=== PATIENT | female | born 1955 | race African-American/Black ===

== ENCOUNTER 2018-07-21 10:25 | Emergency (ER) | payer SELFPAY ==
--- NOTE | 2018-07-21 11:59 | CT ---
Exam: CT cervical spine without contrast HISTORY: Trauma. Pain. COMPARISON: None FINDINGS: No craniocervical dissociation. Appropriate alignment of the lateral masses of C1 and C2. Intact odon toid process Appropriate alignment of the facets. Soft tissue neck structures: No mass, lymphadenopathy or hematoma. No prevertebral soft tissue swelli ng. Upper mediastinum and lung apices: Unremarkable Central spinal canal: Varying degrees of central canal stenosis and neural foraminal narrowing on the basis of degenerative change. Moderate degenerative disc disease at C5-C6 with loss of disc space height, endplate sclerosis and osteophyte formation. Evaluation is limited by technique Vertebral bodies: Cervical spine vertebral body height is maintained. No fracture. IMPRESSION: 1. No cervical spine fracture 2. Varying degrees of central canal stenosis and foraminal narrowing on the basis of degenerative ch cordelia. Limited evaluation due to technique.
--- NOTE | 2018-07-21 12:03 | CT ---
BRAIN CT WITHOUT IV CONTRAST: Date: 07/21/18 HISTORY: Injury from fall, hit back of head. FINDINGS: No focal mass or midline shift. No intra or extra-axial hemorrhage. Sinuses and mastoids are clear of acute process. No evidence for acute skull fracture. IMPRESSION: No significant acute intracranial process. No mass or bleed. POS: TPC
--- NOTE | 2018-07-21 13:25 | RAD ---
LEFT ELBOW 4 VIEWS: Date: 07/21/18 HISTORY: Injury following a mechanical fall. FINDINGS/IMPRESSION: No fracture, dislocation, or other significant acute osseous process. POS: TPC
== END 2018-07-21 12:57 | disposition home or self-care (01) ==
LOC: ERS 10:25
DX: S09.90XA Unspecified injury of head, initial encounter (principal); M25.522 Pain in left elbow; M54.2 Cervicalgia; K21.9 Gastro-esophageal reflux disease without esophagitis; I25.2 Old myocardial infarction; F41.9 Anxiety disorder, unspecified; F32.9 Major depressive disorder, single episode, unspecified; F17.210 Nicotine dependence, cigarettes, uncomplicated; Z71.6 Tobacco abuse counseling; Z79.899 Other long term (current) drug therapy; Z79.82 Long term (current) use of aspirin; W01.0XXA Fall on same level from slipping, tripping and stumbling without subsequent striking against object, initial encounter
CPT/HCPCS: 70450; 72126; 99406

== ENCOUNTER 2018-08-23 19:52 | Emergency (ER) | payer OTHER, SELFPAY ==
--- NOTE | 2018-08-23 20:56 | RAD ---
3 views right shoulder. HISTORY: Right shoulder pain. AP internally, externally scapular Y views right shoulder obtained. No evidence of acute right shoulder fractures, subluxations or bony lesions seen. IMPRESSION: chronic right AC joint degenerative changes with no evidence of acute right shoulder abno rmalities seen.
[2018-08-23 21:08] LABS: #Basophils 0.1 thou/uL (0.0-0.2); #Eosinphils 0.1 thou/uL (0.0-0.7); #Lymphocytes 3.7 thou/uL (1.20-3.40); #Monocytes 0.5 thou/uL (0.11-0.59); %Basophils 0.6 % (0.0-1.0); %Eosinophils 1.4 % (0.0-10.0); %Lymphocytes 39.2 % (21.0-51.0); %Monocytes 5.2 % (0.0-10.0); %Neutrophils 53.6 % (42.0-75.0); Hemoglobin 14.1 g/dL (12.0-16.0); Mean Corpuscular HGB CONC 36.2 g/dL (32.0-36.0); Mean Corpuscular Hemoglobin 33.7 pg (27.0-31.0); Mean Corpuscular Volume 93.2 fL (78.0-98.0); Mean Platelet Volume 7.6 fL (7.4-10.4); Platelet Count 223 thou/uL (130-400); RBC Distribution Width 11.8 % (11.5-14.5); Red Blood Cell (RBC) Count 4.19 mill/uL (4.20-5.40); White Blood Cell (WBC) Count 9.4 thou/uL (4.8-10.8)
[2018-08-23 21:27] LABS: ALT (SGPT) 10 U/L (8-55); AST (SGOT) 13 U/L (5-34); Alkaline Phosphatase 73 U/L (40-150); Anion Gap 14 mmol/L (10-20); BUN (Urea Nitrogen) 7 mg/dL (9.8-20.1); Bilirubin, Total 0.3 mg/dL (0.2-1.2); Calc. Creatinine Clearance 0 mL/min (70-130); Calcium 9.5 mg/dL (7.8-10.44); Carbon Dioxide 24 mmol/L (23-31); Chloride 104 mmol/L (98-107); Estimated GFR-MDRD 87; Globulin 3.6 g/dL (2.4-3.5); Glucose 78 mg/dL (80-115); Lipase 57 U/L (8-78); Potassium 3.7 mmol/L (3.5-5.1); Protein, Total 7.6 g/dL (6.0-8.3); Sodium 138 mmol/L (136-145)
[2018-08-23] MEDS ORDERED: Ketorolac Tromethamine 60 MG/2 ML VIAL ONE (21:31)
== END 2018-08-23 22:15 | disposition home or self-care (01) ==
LOC: ERS 19:52
DX: M19.011 Primary osteoarthritis, right shoulder (principal); D57.3 Sickle-cell trait; K21.9 Gastro-esophageal reflux disease without esophagitis; I25.2 Old myocardial infarction; F41.9 Anxiety disorder, unspecified; F32.9 Major depressive disorder, single episode, unspecified; F17.210 Nicotine dependence, cigarettes, uncomplicated; Z79.82 Long term (current) use of aspirin; Z79.899 Other long term (current) drug therapy
CPT/HCPCS: 36415; 80053; 83690; 85025; 93005; 96372; J1885

== ENCOUNTER 2019-09-15 15:02 | Inpatient (IN) | payer BC, OTHER ==
[2019-09-15] MEDS ORDERED: Labetalol HCl 100 MG/20 ML VIAL ONE (15:36)
--- NOTE | 2019-09-15 15:36 | RAD ---
EXAM: Single view of the chest HISTORY: Chest pain COMPARISON: 07/24/2014 FINDINGS: Single view of the chest shows a normal sized cardiomediastinal silhouette. There is no zeny dence of consolidation, mass, or pleural effusion. The bones are unremarkable. IMPRESSION: No evidence of acute cardiopulmonary disease
[2019-09-15 15:48] LABS: Bilirubin Negative (Negative); Blood, Urine Negative (Negative); Clarity Clear (Clear); Glucose, Urine (Dipstick) Normal (Negative); Leukocyte Negative Leu/uL (Negative); Nitrite Negative (Negative); Protein, Urine (Dipstick) Negative (Neg-Trace); Urobilinogen Normal mg/dL (Less than 2)
[2019-09-15 15:56] LABS: Hemoglobin 15.1 g/dL (12.0-16.0); Mean Corpuscular HGB CONC 33.3 g/dL (32.0-36.0); Mean Corpuscular Hemoglobin 31.7 pg (27.0-31.0); Mean Corpuscular Volume 95.1 fL (78.0-98.0); Mean Platelet Volume 7.5 fL (7.4-10.4); Platelet Count 301 thou/uL (130-400); RBC Distribution Width 12.2 % (11.5-14.5); Red Blood Cell (RBC) Count 4.77 mill/uL (4.20-5.40); White Blood Cell (WBC) Count 11.2 thou/uL (4.8-10.8)
[2019-09-15 16:02] LABS: ALT (SGPT) 17 U/L (8-55); AST (SGOT) 16 U/L (5-34); Albumin 4.1 g/dL (3.4-4.8); Alkaline Phosphatase 74 U/L (40-110); Anion Gap 13 mmol/L (10-20); BUN (Urea Nitrogen) 6 mg/dL (9.8-20.1); Bilirubin, Total 0.4 mg/dL (0.2-1.2); Calc. Creatinine Clearance 0 mL/min (70-130); Calcium 9.6 mg/dL (7.8-10.44); Carbon Dioxide 22 mmol/L (23-31); Chloride 107 mmol/L (98-107); Estimated GFR-MDRD 83; Globulin 3.5 g/dL (2.4-3.5); Glucose 139 mg/dL (80-115); Lipase 42 U/L (8-78); Protein, Total 7.6 g/dL (6.0-8.3); Sodium 138 mmol/L (136-145)
[2019-09-15 16:07] LABS: Eosinophils 1 % (0-10); Lymphocytes 42 % (21-51); MDiff Complete? YES; Monocytes 2 % (0-10); Neutrophil 54 % (42-75); RBC Morphology Normal; Reactive Lymphocytes 1 % (0-10)
[2019-09-15] MEDS ORDERED: Aspirin Chewable 81 MG TAB ONE (16:40)
[2019-09-15 19:42] LABS: Troponin I Less than 0.010 ng/mL (< 0.028)
[2019-09-15] MEDS ORDERED: Nitroglycerin 0.4 MG TAB (25 Tab Bottle) PO PRN (20:09)
[2019-09-15] MEDS ORDERED: Ondansetron PF 4 MG/2 ML Vial IVP PRN (20:11)
[2019-09-15] MEDS ORDERED: Senokot S 8.6-50 MG TAB PO PRN (20:11)
[2019-09-15] MEDS ORDERED: Calcium Carbonate 500 MG ChewTAB PO PRN (20:11)
[2019-09-15] MEDS ORDERED: Acetaminophen 325 MG TAB PO PRN (20:11)
[2019-09-15] MEDS ORDERED: Ondansetron ODT 4 MG TAB PO PRN (20:11)
[2019-09-15] MEDS ORDERED: Labetalol HCl 100 MG/20 ML VIAL SLOW IVP PRN (20:17)
--- NOTE | 2019-09-15 20:21 | HP ---
PRIMARY CARE: Dr. Mukul Rodriguez at [facility]. CHIEF COMPLAINT: Near syncope. HISTORY OF PRESENT ILLNESS: The patient is a 63-year-old female with hypertension, presented to the emergency room with above complaints. The patient is currently followed by Dr. Chung. The patient was found to have episode of altered mentation that lasted for approximately 30 minutes earlier today. She was not responding at that time. The patient states that she was aware of the surrounding, however, lost control of her body. No chest pain, shortness of breath, palpitations, double vision, blurring of vision, facial asymmetry reported. She also had some discomfort in the left shoulder pain that has been ongoing for last 3 days. Recently, she has been feeling dizzy on and off without any vertigo, nausea, vomiting, or headache. In the emergency room, her initial vital signs showed temperature 98.2, respirations of 18, pulse of 65 with a blood pressure of 190/94, O2 saturation 100% on room air. A repeat blood pressure after labetalol 20 mg was in 120s. PAST MEDICAL HISTORY: 1. Hypertension. 2. Sickle cell trait. 3. Coronary artery disease, followed by Dr. Chung. 4. Intermittent left eye visual blurring, followed by primary care physician. 5. Anxiety. 6. GERD. PAST SURGICAL HISTORY: 1. Coronary stent placement. 2. Tubal ligation. ALLERGIES: NO KNOWN DRUG ALLERGIES. CURRENT HOME MEDICATIONS: 1. Aspirin 81 mg daily. 2. Carvedilol 3.125 mg b.i.d. 3. Lisinopril 2.5 mg daily. 4. Pravastatin 40 mg daily. SOCIAL HISTORY: The patient currently lives at home with her family. Smokes up to half pack a day. She drinks alcohol socially. No drug use. FAMILY HISTORY: Negative for premature coronary artery disease. REVIEW OF SYSTEMS: All other review of systems was reviewed and found negative. PHYSICAL EXAMINATION: VITAL SIGNS: As discussed above. GENERAL: A 63-year-old female, in no apparent distress. HEENT: Head, atraumatic and normocephalic. Sclerae are anicteric. Moist mucous membranes. No oral lesion. NECK: Supple. No JVD. No carotid bruit. LUNGS: Clear to auscultation bilaterally. No wheezing, rales, or rhonchi. HEART: S1 and S2 present. Regular rate and rhythm. No rubs or gallops. ABDOMEN: Soft, nontender. Bowel sounds present. EXTREMITIES: No edema or calf tenderness. NEUROLOGIC: Grossly nonfocal. Moves all 4 extremities. Power is 5/5 in all extremities. [id number] test is normal. SKIN: Warm and dry. LYMPH NODES: No palpable lymph nodes in the neck. PSYCHIATRY: Alert, awake, oriented x3. DIAGNOSTIC TESTS: EKG by my review showed sinus rhythm with nonspecific ST-T wave changes. Troponin negative. Urinalysis negative. BUN 6, creatinine 0.84. WBC 11.2 with hemoglobin 15.1, hematocrit 45.4, platelet 301. Chest x-ray by my review was negative for infiltrate. IMPRESSION: 1. Near syncope, suspected cardiogenic. 2. Coronary artery disease status post stent placement. 3. Hypertension with hypertensive urgency on admission. 4. Hyperlipidemia. 5. Gastroesophageal reflux disease. 6. Anxiety. 7. Chronic kidney disease, stage 2. 8. Ongoing tobacco dependence. 9. Degenerative joint disease. 10. History of sickle cell trait. PLAN: The patient will be monitored in the telemetry unit. Serial troponins will be obtained. We will check echocardiogram and carotid Doppler. Consult Cardiology in a.m. The patient will be kept n.p.o. past midnight. Orthostatic vitals will be obtained. The patient understands the plan of care. Job ID: [id number]
[2019-09-15] MEDS ORDERED: Pravastatin Sodium 40 MG TAB PO SCH (21:00)
[2019-09-15 21:33] VITALS: BMI 24.3
[2019-09-15 22:20] LABS: Troponin I Less than 0.010 ng/mL (< 0.028)
[2019-09-15] MEDS ORDERED: Atorvastatin Calcium 10 MG TAB PO SCH (23:15)
[2019-09-16 05:32] LABS: Cardiac Risk 5.7 (Less than 4.5)
--- NOTE | 2019-09-16 07:48 | ULT ---
EXAM: Carotid ultrasound HISTORY: Near syncope COMPARISON: None TECHNIQUE: Multiplanar grayscale and color Doppler images were obtained in a carotid ultrasound. Spec tral analysis of the Doppler waveforms were performed. FINDINGS: A large amount of plaque is seen in the proximal left internal carotid artery. The Doppler waveforms are normal in the visualized vessels. Peak systolic velocity in the right internal carotid artery 122 cm/s. Peak systolic velocity in the right common carotid artery 78 cm/s. The right ICA/CCA ratio is 1.6. Peak systolic velocity in the left internal carotid artery 64 cm/s. Peak systolic velocity in the left common carotid artery 62 cm/s. The left ICA/CCA ratio is 1.0. Both vertebral arteries demonstrate antegrade flow without focal stenosis IMPRESSION: The velocities do not indicate that there is a hemodynamically significant stenosis. However, visuall y there is a large amount of plaque in the left internal carotid artery. A CTA of the neck is recommended for further evaluation.
[2019-09-16] MEDS ORDERED: Carvedilol 3.125 MG TAB PO SCH (08:00)
[2019-09-16] MEDS ORDERED: Lisinopril 2.5 MG TAB PO SCH (09:00)
[2019-09-16] MEDS: Aspirin 81 mg Enteric Coated Tablet PO SCH (10:54)
[2019-09-16] MEDS: Cyanocobalamin (Vitamin B-12) 1,000 MCG TAB PO SCH (10:54)
[2019-09-16 11:37] LABS: Anion Gap 12 mmol/L (10-20); BUN (Urea Nitrogen) 7 mg/dL (9.8-20.1); Calc. Creatinine Clearance 69 mL/min (70-130); Calcium 9.6 mg/dL (7.8-10.44); Carbon Dioxide 26 mmol/L (23-31); Chloride 106 mmol/L (98-107); Estimated GFR-MDRD 89; Glucose 106 mg/dL (80-115); Magnesium 2.1 mg/dL (1.6-2.6); Potassium 4.2 mmol/L (3.5-5.1); Sodium 140 mmol/L (136-145)
[2019-09-16 11:42] LABS: Troponin I Less than 0.010 ng/mL (< 0.028)
[2019-09-16] MEDS ORDERED: Iopamidol-370 76% 500 ML 1 ML ONE (12:58)
[2019-09-16] MEDS ORDERED: Magnevist 469MG/ML 20 ML VIAL ONE (13:06)
--- NOTE | 2019-09-16 14:04 | CON ---
DATE OF CONSULTATION: 09/16/2019 REASON FOR CONSULTATION: Presyncope. PRIMARY SWING MANAGER: Cam Chung MD HISTORY OF PRESENT ILLNESS: Ms. Zapata is a pleasant 63-year-old female, who comes to the hospital for presyncope. She had an episode, where it was unsure whether she was altered or just presyncopal. She does not remember that well, not responding at times according to family members, but she did not lose control of her body functions. She denies any chest pain, tightness, or pressure. Her right shoulder has been hurting for a long time now. Feeling dizzy lately. Last time she was seen in the office was back in May of 2018, at which time she had told me she had stopped smoking; however, she is back smoking because of the pressure and she feels she is depressed. PAST MEDICAL HISTORY: 1. Hypertension. 2. Sickle cell trait. 3. Coronary artery disease, status post LAD stent in 2014. 4. 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 5. Anxiety. 6. GERD. SURGICAL HISTORY: 1. Coronary artery stenting to the LAD with bare-metal stents in 2014. 2. Tubal ligation. ALLERGIES: NO KNOWN DRUG ALLERGIES. OUTPATIENT MEDICATIONS: 1. Aspirin 81 a day. 2. Carvedilol 3.125 b.i.d. 3. Lisinopril 2.5 a day. 4. Pravastatin 40 mg a day. SOCIAL HISTORY: She started smoking back up since last time she was seen in the office, one pack lasts for about 3 days. Social alcohol use. No drug use. FAMILY HISTORY: Noncontributory. REVIEW OF SYSTEMS: A 12-point review of systems was done and was all negative unless stated in the history of present illness. PHYSICAL EXAMINATION: VITAL SIGNS: Temperature 97.9, pulse 60, respiratory rate 16, saturating 98% on room air, and blood pressure 150/106. GENERAL: Awake, alert, and oriented x3. No distress. HEENT: Normocephalic and atraumatic. NECK: Supple. LUNGS: Clear. CARDIOVASCULAR: S1 and S2. No S3 or S4. There is a very soft grade 2/6 holosystolic murmur at the apex. ABDOMEN: Soft. Positive bowel sounds. EXTREMITIES: No edema. SKIN: Warm and dry. LABORATORY DATA: Laboratory work was reviewed. White count of 11, hemoglobin of 15, hematocrit of 45, and platelet count of 301. Chemistry was unremarkable. Troponins were undetectable x3. Triglycerides of 266, cholesterol 177, LDL of 93, and HDL of 31. Lipase was normal. Folate and B12 were normal. UA was unremarkable. EKG was reviewed. Telemetry has been reviewed. ASSESSMENT AND PLAN: 1. Presyncope. 2. History of coronary artery disease, no acute coronary syndrome. 3. Left eye blindness. 4. Right shoulder pain. PLAN: 1. We will get an MRI of the brain with and without contrast to address that blindness since she has not had an MRI. Concern for an embolic phenomenon versus a mass with her history of smoking. 2. Continue monitoring coordinator while inpatient. We will get an echocardiogram to make sure that her LV function and valvular structures remain unchanged as they were last seen a year ago. 3. If all this looks okay, she may be discharged home from the cardiac perspective with a 30-day monitor. Thank you for letting us participate in the care of your patient. We will follow. Job ID: [id number]
--- NOTE | 2019-09-16 14:07 | PDOC.HOSPP ---
- Subjective Encounter Date: 09/16/19 Encounter Time: 11:30 Subjective: Patient seen and examined for near syncope. No new focal deficits. No CP/SOB/ Palpitations. No new complaints. No overnight events - Objective Vital Signs & Weight: Vital Signs (12 hours) Temp Pulse Resp BP BP Pulse Ox 09/16/19 11:51 97.9 F 60 16 150/106 H 98 09/16/19 10:54 56 L 09/16/19 08:21 97 09/16/19 08:00 97.8 F 56 L 16 134/73 97 09/16/19 04:10 97.5 F L 68 18 131/70 99 Weight Weight 132 lb 12.8 oz I&O: 09/15/19 09/16/19 09/17/19 06:59 06:59 06:59 Intake Total 240 Balance 240 Result Diagrams: 09/15/19 15:28 09/16/19 11:01 Radiology Reviewed by me: Yes (Carotid doppler - Left ICA plaque) EKG Reviewed by me: Yes (SR with 2.2 sec pause) Hospitalist ROS - Review of Systems Respiratory: denies: cough, dry, shortness of breath, hemoptysis, SOB with excertion, pleuritic pain, sputum, wheezing, other Cardiovascular: denies: chest pain, palpitations, orthopnea, paroxysmal noc. dyspnea, edema, light headedness, other Gastrointestinal: denies: nausea, vomiting, abdominal pain, diarrhea, constipation, melena, hematochezia, other - Medication Medications: Active Medications Generic Name Dose Route Start Last Admin Trade Name Freq PRN Reason Stop Dose Admin Acetaminophen 650 mg 09/15/19 20:11 09/16/19 01:45 Tylenol PO 650 mg Q4H PRN Administration Headache/Fever/Mild Pain (1-3) Aspirin 81 mg 09/16/19 09:00 09/16/19 10:54 Ecotrin PO 81 mg DAILY JEANIE Administration Cyanocobalamin 1,000 mcg 09/16/19 09:00 09/16/19 10:54 Vitamin B-12 PO 1,000 mcg DAILY JEANIE Administration - Exam General Appearance: NAD Heart: RRR, no gallops, no rubs, normal peripheral pulses Respiratory: no wheezes, no rales, no ronchi, normal chest expansion Gastrointestinal: soft, non-tender, non-distended, normal bowel sounds Extremities: no cyanosis, no clubbing, no edema Neurological: cranial nerve grossly intact, normal sensation to touch, no weakness, no new deficit Psychiatric: normal affect, A&O x 3 Hosp A/P - Plan DVT proph w/SCDs 1. Near syncope ?cardiogenic. 2. CAD s/p stent placement. 3. Hypertension with hypertensive urgency on admission. 4. Sinus pause of 2.2 sec 5. Hyperlipidemia. 6. Anxiety. 7. Chronic kidney disease, stage 2. 8. Ongoing tobacco dependence. 9. Degenerative joint disease. 10. History of sickle cell trait. 11. GERD. PLAN: DC Coreg Increase Lisinopril to 2.5 BID CTA carotid due to abnormal Carotid doppler Await Echo Await Cardio input Cont other meds as above Update: CTA - Left ICA 90% stenosis - Will consult CV
--- NOTE | 2019-09-16 15:28 | CT ---
CTA OF THE NECK WITH IV CONTRAST AND 3-D REFORMATTED IMAGING. INDICATION: Abnormal carotid Doppler evaluation COMPARISON: Carotid duplex ultrasound dated 09/16/2019 FINDINGS: Right CCA: Patent. Right ICA: Mildly tortuous but patent Right Subclavian: Patent. Right Vertebral Artery: Patent. Left CCA: Patent. Left ICA: High-grade stenosis, at least 90%, from the origin through the proximal left ICA. The left cervical ICA is diminutive throughout its entire course. Left Subclavian: Patent. Left Vertebral Artery: Patent. Aerodigestive tract: Clear. Parotids/Submandibular/Thyroid glands: Normal. Lymph nodes: No pathologically enlarged lymph nodes. Lung Apices: Mild/moderate emphysema. There is a small 3.7 mm pulmonary nodule in the right upper lo be. Bones: No acute osseous abnormality. Incidentals: There is high-grade stenosis involving the origin of the left external carotid artery. IMPRESSION: 1. High-grade stenosis, at least 90%, involving the origin and proximal left ICA. 2. High-grade stenosis involving the origin of the left external carotid artery. 3. No hemodynamically significant stenosis of the right internal carotid artery, right vertebral tyrone ry and left vertebral artery. 4. 3.7 mm right upper lobe pulmonary nodule. Emphysema. Follow-up CT of the thorax in one year is rec ommended to document stability.
--- NOTE | 2019-09-16 16:35 | MRI ---
MRI OF THE BRAIN WITH AND WITHOUT IV CONTRAST 09/16/19 HISTORY: Left eye blindness, vertigo that has resolved. FINDINGS: There are a few foci of T2 prolongation in the periventricular white matter consistent with mild dock loader marjorie small vessel ischemic disease. No restricted diffusion is seen. There are a few tiny hypointensit ies on the gradient echo sequences consistent with hemosiderin deposition due to remote hemorrhage. N o evidence of acute infarct, hemorrhage, mass, midline shift, or abnormal extra-axial fluid collectio ns are seen. The ventricular size is appropriate and the basilar cisterns patent. No abnormal postcon trast enhancement is seen. There is a mucous retention cyst with polyp in the right maxillary sinus. IMPRESSION: No evidence of acute intracranial process or mass. POS: AH
[2019-09-16] MEDS ORDERED: Atorvastatin Calcium 10 MG TAB PO SCH (21:00)
[2019-09-16] MEDS: Lisinopril 2.5 MG TAB PO SCH (21:41)
--- NOTE | 2019-09-17 00:10 | CON ---
DATE OF CONSULTATION: HISTORY OF PRESENT ILLNESS: This is a 63-year-old female who reports a few weeks ago, she suffered transient left eye blindness. She did not seek any medical care for this. A couple of days ago, she was on her phone holding it in her left hand when her right hand became unresponsive and would not do what she wanted to. She was able to speak, but when she tried to stand up, she could not, because her right leg would not cooperate. This lasted a very short period of time by her account. She was admitted to the hospital, where she has had a negative MRI. She had a cardiac echo showing normal ejection fraction with some aortic valve sclerosis. She had a carotid ultrasound that was unremarkable except for heavy plaquing in the left carotid bulb. However, CT angiogram showed a 99% left internal carotid artery occlusion with a small vessel distally, but not actually a string sign. Right carotid had mild calcification. Laboratory values unremarkable except her cholesterol is 177. Her triglyceride is 266. Her troponin is negative. HOME MEDICATIONS: Include, 1. Aspirin. 2. Pravastatin 40. 3. Lisinopril 2.5. 4. Coreg 3.125. 5. Prilosec 20. 6. In the hospital, her Coreg has been on hold and her heart rate has been about 60. PHYSICAL EXAMINATION: GENERAL: She is alert, cooperative lady. VITAL SIGNS: Blood pressure 135/76, heart rate 61. EKG not remarkable. NECK: No carotid bruits. LUNGS: Clear to auscultation. CARDIAC: Regular rate and rhythm. No murmurs. ABDOMEN: Soft and nontender. EXTREMITIES: She has present left femoral pulse, left dorsalis pedis. Absent right femoral pulse, right dorsalis pedis. PAST MEDICAL HISTORY: No hypertension, no elevated lipid levels, no diabetes. SOCIAL HISTORY: She smokes about a pack of cigarettes every 2 to 3 days, which is less than her usual amount. She lives alone. She has some children. She does not drink. REVIEW OF SYSTEMS: Her right leg gives out short distances and this has been going on for 2 to 3 years. She has no chest pain. No diarrhea or constipation. No change in bowel habits. ASSESSMENT: 1. Critical left carotid stenosis, symptomatic with an episode of amaurosis within the last month and an episode of right-sided weakness this week. 2. 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 3. History of coronary artery disease with normal echo and no anginal symptoms. PLAN: Plan at this time, is for a left carotid endarterectomy, and informed consent has been obtained. Job ID: [id number]
[2019-09-17] MEDS: Lisinopril 2.5 MG TAB PO SCH ×2 (08:33→21:00)
[2019-09-17] MEDS: Aspirin 81 mg Enteric Coated Tablet PO SCH (08:33)
[2019-09-17] MEDS: Cyanocobalamin (Vitamin B-12) 1,000 MCG TAB PO SCH (08:33)
--- NOTE | 2019-09-17 10:24 | PDOC.CPN ---
- Subjective Date: 09/17/19 Time: 10:21 Interval history: Daughter is in the room today and she describes her mother having an episodes of right arm and leg weakness before admission. - Review of Systems General: denies: fever/chills, weight/appetite/sleep changes, night sweats, fatigue Respiratory: denies: cough, congestion, shortness of breath, exercise intolerance Cardiovascular: denies: chest pain, palpitation, edema, paroxysmal nocturnal dyspnea, orthopnea Gastrointestinal: denies: nausea, vomiting, diarrhea, constipation, abd pain, GI bleeding Musculoskeletal: denies: pain, tenderness, stiffness, swelling, arthritis/ arthralgias Neurological: denies: numbness, syncope, seizure, weakness - Objective Allergies/Adverse Reactions: Allergies Allergy/AdvReac Type Severity Reaction Status Date / Time No Known Allergies Allergy Verified 09/15/19 21:37 Visit Medications: Current Medications Acetaminophen (Tylenol) 650 mg PO Q4H PRN PRN Reason: Headache/Fever/Mild Pain (1-3) Last Admin: 09/16/19 01:45 Dose: 650 mg Aspirin (Ecotrin) 81 mg PO DAILY [facility] Last Admin: 09/17/19 08:33 Dose: 81 mg Atorvastatin Calcium (Lipitor) 10 mg PO HS [facility] Last Admin: 09/16/19 21:41 Dose: 10 mg Calcium Carbonate (Tums) 1,000 mg PO Q4H PRN PRN Reason: Heartburn or Indigestion Cyanocobalamin (Vitamin B-12) 1,000 mcg PO DAILY [facility] Last Admin: 09/17/19 08:33 Dose: 1,000 mcg Labetalol HCl (Normodyne) 10 mg SLOW IVP Q4H PRN PRN Reason: Systolic BP > 180 Lisinopril (Zestril) 2.5 mg PO BID [facility] Last Admin: 09/17/19 08:33 Dose: 2.5 mg Nitroglycerin (Nitrostat) 0.4 mg PO Q5MIN PRN PRN Reason: Chest Pain Ondansetron HCl (Zofran Odt) 4 mg PO Q6H PRN PRN Reason: Nausea/Vomiting Ondansetron HCl (Zofran) 4 mg IVP Q6H PRN PRN Reason: Nausea/Vomiting Senna/Docusate Sodium (Senokot S) 2 tab PO BID PRN PRN Reason: Constipation Sodium Chloride (Flush - Normal Saline) 10 ml IVF PRN PRN PRN Reason: Saline Flush Vital Signs & Weight: Vital Signs Temp Pulse Resp BP Pulse Ox 09/17/19 08:33 60 09/17/19 07:00 98.5 F 60 22 H 120/71 99 09/17/19 03:14 98.1 F 58 L 12 138/73 92 L 09/16/19 23:16 98 F 58 L 15 120/61 96 Weight 132 lb 12.8 oz - Physical Exam General: alert & oriented x3 HEENT: mucus membranes moist Neck: supple neck Cardiac: regular rate and rhythm Lungs: clear to auscultation Neuro: grossly intact Abdomen: active bowel sounds Extremities: no edema Skin: clear - Labs Result Diagrams: 09/15/19 15:28 09/16/19 11:01 Troponin/CKMB Troponin I Less than 0.010 ng/mL (< 0.028) 09/16/19 11:01 - Telemetry Sinus rhythms and dysrhythmias: sinus rhythm - Assessment/Plan Assessment/Plan: 1. Most likely TIA 2. Severe carotid disease. 3. CAD, no ACS PLAN: - Agree with carotid endarterectomy to prevent further events. - Will follow from a distance over the weekend.
[2019-09-17] MEDS ORDERED: Lidocaine 1% PF 5 ML VIAL ONE (10:26)
[2019-09-17] MEDS ORDERED: Dexamethasone 20 MG/5 ML VIAL ONE (10:26)
[2019-09-17] MEDS ORDERED: Rocuronium Bromide 10 MG/ML (10ML VIAL) ONE (10:26)
[2019-09-17] MEDS ORDERED: Glycopyrrolate 0.2 MG/ML 5 ML SYRINGE ONE (10:26)
[2019-09-17] MEDS ORDERED: Ondansetron PF 4 MG/2 ML Vial ONE (10:26)
[2019-09-17] MEDS ORDERED: Ketorolac Tromethamine 30 MG/ML VIAL ONE (10:26)
[2019-09-17] MEDS ORDERED: PROPOFOL 200 MG/20 ML VIAL ONE (10:26)
[2019-09-17] MEDS ORDERED: EPHEDRINE 25 MG/5 ML SYRINGE ONE (10:26)
[2019-09-17] MEDS ORDERED: Heparin 5,000 UNITS/ML VIAL ONE (11:46)
[2019-09-17] MEDS ORDERED: Protamine Sulfate 50 MG/5 ML VIAL ONE (11:46)
[2019-09-17] MEDS ORDERED: Bupivacaine PF 0.5% 30 ML VIAL ONE (11:46)
[2019-09-17] MEDS ORDERED: EPINEPHrine 1 MG/ML AMP ONE (11:46)
[2019-09-17] MEDS ORDERED: Fentanyl 100 MCG/2 ML VIAL ONE (12:03)
[2019-09-17] MEDS ORDERED: Midazolam HCl 2 mg/2 ml Vial ONE (12:03)
[2019-09-17] MEDS ORDERED: Ondansetron HCl/PF 4 MG/2 ML Vial IVP PRN (14:02)
[2019-09-17] MEDS ORDERED: Ondansetron PF 4 MG/2 ML Vial IVP PRN (14:09)
[2019-09-17] MEDS ORDERED: Acetaminophen 325 MG TAB PO PRN (14:09)
[2019-09-17] MEDS ORDERED: Fentanyl 100 MCG/2 ML VIAL SLOW IVP PRN (14:09)
[2019-09-17] MEDS ORDERED: HYDROcodone/Acetaminophen 5/325 mg Tablet PO PRN (14:09)
--- NOTE | 2019-09-17 17:21 | PDOC.HOSPP ---
- Subjective Encounter Date: 09/17/19 Encounter Time: 08:00 Subjective: Patient seen and examined for near syncope. No new focal deficits. No new complaints. No overnight events - Objective Vital Signs & Weight: Vital Signs (12 hours) Temp Pulse Resp BP Pulse Ox 09/17/19 08:33 60 09/17/19 07:00 98.5 F 60 22 H 120/71 99 Weight Weight 132 lb 12.8 oz I&O: 09/16/19 09/17/19 09/18/19 06:59 06:59 06:59 Intake Total 2220 Balance 2220 Result Diagrams: 09/15/19 15:28 09/16/19 11:01 EKG Reviewed by me: Yes (Tele SR) Hospitalist ROS - Review of Systems Respiratory: denies: cough, dry, shortness of breath, hemoptysis, SOB with excertion, pleuritic pain, sputum, wheezing, other Cardiovascular: denies: chest pain, palpitations, orthopnea, paroxysmal noc. dyspnea, edema, light headedness, other - Medication Medications: Active Medications Generic Name Dose Route Start Last Admin Trade Name Freq PRN Reason Stop Dose Admin Acetaminophen 650 mg 09/15/19 20:11 09/16/19 01:45 Tylenol PO 650 mg Q4H PRN Administration Headache/Fever/Mild Pain (1-3) Aspirin 81 mg 09/16/19 09:00 09/17/19 08:33 Ecotrin PO 81 mg DAILY JEANIE Administration Atorvastatin Calcium 10 mg 09/16/19 21:00 09/16/19 21:41 Lipitor PO 10 mg HS JEANIE Administration Cyanocobalamin 1,000 mcg 09/16/19 09:00 09/17/19 08:33 Vitamin B-12 PO 1,000 mcg DAILY JEANIE Administration Lisinopril 2.5 mg 09/16/19 21:00 09/17/19 08:33 Zestril PO 2.5 mg BID JEANIE Administration - Exam General Appearance: NAD Heart: RRR, no gallops Respiratory: no wheezes, no ronchi Gastrointestinal: non-tender, normal bowel sounds Extremities: no cyanosis, no clubbing Neurological: no new deficit Hosp A/P - Plan DVT proph w/SCDs 1. Near syncope ?cardiogenic. 2. CAD s/p stent placement. 3. Hypertension with hypertensive urgency on admission. 4. Sinus pause of 2.2 sec. Coreg dced 5. Left ICA 90% stenosis 6. Anxiety. 7. Chronic kidney disease, stage 2. 8. Ongoing tobacco dependence. 9. Degenerative joint disease. 10. History of sickle cell trait. 11. GERD. 12. Hyperlipidemia. 13. Folic acid/Vit B12 def. PLAN: CEA today CV input appeciated Cont Lisinopril to 2.5 BID Cont Folic acid/Vit B12 def Cont other meds as above
[2019-09-17] MEDS: Sodium Chloride 0.9% 1,000 ML IV SCH (19:20)
[2019-09-17] MEDS: CEFAZOLIN 2 GM in Premix Bag 1 BAG IVPB SCH (21:00)
[2019-09-17] MEDS ORDERED: Atorvastatin Calcium 40 MG TAB PO SCH (21:00)
[2019-09-18 05:06] LABS: #Lymphocytes 2.2 thou/uL (1.20-3.40); #Monocytes 0.5 thou/uL (0.11-0.59); #Neutrophils 11.3 thou/uL (1.40-6.50); %Basophils 0.2 % (0.0-1.0); %Eosinophils 0.1 % (0.0-10.0); %Lymphocytes 15.6 % (21.0-51.0); %Monocytes 3.8 % (0.0-10.0); %Neutrophils 80.3 % (42.0-75.0); Hemoglobin 12.5 g/dL (12.0-16.0); Mean Corpuscular HGB CONC 34.4 g/dL (32.0-36.0); Mean Corpuscular Hemoglobin 32.4 pg (27.0-31.0); Mean Corpuscular Volume 94.1 fL (78.0-98.0); Mean Platelet Volume 7.8 fL (7.4-10.4); Platelet Count 249 thou/uL (130-400); RBC Distribution Width 12.2 % (11.5-14.5); Red Blood Cell (RBC) Count 3.87 mill/uL (4.20-5.40); White Blood Cell (WBC) Count 14.1 thou/uL (4.8-10.8)
[2019-09-18 05:22] LABS: Anion Gap 11 mmol/L (10-20); BUN (Urea Nitrogen) 10 mg/dL (9.8-20.1); Calc. Creatinine Clearance 69 mL/min (70-130); Calcium 8.7 mg/dL (7.8-10.44); Carbon Dioxide 24 mmol/L (23-31); Chloride 109 mmol/L (98-107); Estimated GFR-MDRD 89; Glucose 104 mg/dL (80-115); Potassium 4.1 mmol/L (3.5-5.1); Sodium 140 mmol/L (136-145)
[2019-09-18] MEDS: CEFAZOLIN 2 GM in Premix Bag 1 BAG IVPB SCH ×2 (05:36→10:54)
--- NOTE | 2019-09-18 07:03 | OP ---
DATE OF PROCEDURE: 09/17/2019 PREOPERATIVE DIAGNOSIS: Left carotid stenosis. PROCEDURE PERFORMED: Left carotid endarterectomy with bovine patch angioplasty. ANESTHESIA: General. ESTIMATED BLOOD LOSS: 100 to 150. DESCRIPTION OF PROCEDURE: After adequate anesthesia had been obtained, ultrasound was used to guide incision, and the patient was prepped and draped. At that time, the bean had washed off the neck, incision was made, and the common, internal, and external carotid arteries were identified. The carotid bifurcation was somewhat high in the neck. Internal carotid artery was quite small, and after 5000 units of heparin with a good ACT level, clamps were applied to the common carotid artery and a loop tightened on the external. Arteriotomy was performed and there was good backbleeding from the internal carotid artery. There was some difficulty getting an 8-Frisian sheath into the internal carotid artery due to its small size, but ultimately this was accomplished safely. Endarterectomy was then performed with nice tapering distally. After irrigating the area thoroughly, a bovine patch was used to close the arteriotomy with a running 6-0 Prolene suture. Prior to completing the suture line, the vessel was backflushed and forward flushed, and then flow restored up the external and then internal carotid artery. Hemostasis was obtained with partial reversal of the heparin, gollowing which, the wound was irrigated and closed in layers. Job ID: [id number]
[2019-09-18] MEDS: Lisinopril 2.5 MG TAB PO SCH (09:28)
[2019-09-18] MEDS: Cyanocobalamin (Vitamin B-12) 1,000 MCG TAB PO SCH (09:28)
[2019-09-18] MEDS: Sodium Chloride 0.9% 1,000 ML IV SCH (09:28)
[2019-09-18] MEDS: Aspirin 81 mg Enteric Coated Tablet PO SCH (09:28)
[2019-09-18 09:30] VITALS: BP 108/55
[2019-09-18 09:58] VITALS: TEMP 98.1
--- NOTE | 2019-09-20 08:25 | DIS ---
DATE OF ADMISSION: 09/15/2019 DATE OF DISCHARGE: 09/18/2019 DISCHARGE DISPOSITION: Home. FOLLOWUP: 1. Follow up with primary care physician, Dr. Mukul Rodriguez, at [facility] in 1 week. 2. Follow up with Cardiology, Dr. Chung and Dr. Tapia as scheduled. The patient was seen and examined on the day of discharge. Denies any new complaints. No chest pain, shortness of breath, palpitations, or syncope reported. The patient was advised not to drive until cleared by MD. A 24-hour Holter monitor will be arranged by Cardiology. BRIEF HOSPITAL COURSE: The patient is a 63-year-old female with hypertension, coronary artery disease with intermittent left eye blurring, presented to the emergency room with a near syncopal episode. The patient was monitored on the telemetry unit. She was started back on her carvedilol and lisinopril. On the case monitor, the patient was found to have 2.2 second pause. Carvedilol was discontinued for this reason. Her echocardiogram showed left ventricular ejection fraction of 60% to 65% with grade 1 of 3 diastolic dysfunction, mild mitral regurgitation, mild tricuspid regurgitation. MRI of the brain with and without contrast was negative for acute intracranial process. It showed a few tiny hypo-intensities on the gradient echo sequence consistent with hemosiderin deposition due to remote hemorrhage. There was also a mucous retention cyst with polyp in the right maxillary sinus. A carotid Doppler showed left internal carotid artery stenosis. This was confirmed on the CTA of the neck that showed 90% stenosis at the origin and proximal left ICA. There was no hemodynamically significant stenosis in the right ICA, right vertebral artery, and left vertebral artery. The patient underwent left carotid endarterectomy with bovine patch angioplasty by Dr. Tapia on September 17, 2019. The patient has been cleared by consultants for discharge. FINAL DIAGNOSES: 1. Near syncope, multifactorial. 2. 2.2 second ventricular pause. Beta-blockers have been discontinued. 3. Left ICA 90% stenosis, status post carotid endarterectomy this admission. 4. Hypertension with hypertensive urgency on admission. 5. Anxiety. 6. Chronic kidney disease, stage 2. 7. Ongoing tobacco abuse. The patient was counseled. 8. History of sickle cell trait. 9. Gastroesophageal reflux disease. 10. Hyperlipidemia. 11. Vitamin B12 deficiency. 12. A 3.7 mm right upper lobe pulmonary nodule on the CT of the neck. An outpatient CT of the thorax in 1 year is recommended. Primary care physician advised to follow. 13. The patient understands the above plan of care. SIGNIFICANT LABORATORY DATA: Fasting lipid profile showed triglyceride 266, cholesterol 177, and LDL 93 with HDL of 31. Job ID: [id number]
--- NOTE | 2019-09-21 07:06 | PQF ---
TAMMY ACEVEDO MALIK MD [id number] [facility] [place] [id number] CLINICAL DOCUMENTATION CLARIFICATION FORM: POST DISCHARGE Addendum to original discharge summary date: ____ Late entry note date: __ DATE: 09/21/2019 ATTN:Abram Verdugo Please exercise your independent, professional judgment in responding to the clarification form. Clinical indicators are provided on the bottom of this form for your review Please check appropriate box(s): Syncope Due to: [ x ] Carotid artery stenosis with suspected sinus pause from betablockers [ ] TIA Please specify etiology: [ ] Carotid artery stenosis [ ] Other TIA [ ] Unknown etiology [ ] Other diagnosis [ ] Unable to determine For continuity of documentation, please document condition throughout progress notes and discharge summary. Thank You. CLINICAL INDICATORS - SIGNS / SYMPTOMS / LABS DS 09/17 "near syncope multifactorial" 09/17 "presents to the ER for near syncope episode" DS 09/17 "CTA odf neck showed left internal carotid artery stenosis" PN 09/15 "near syncope? cardiogenic" PN 09/16 "most likely TIA" RISK FACTORS 63 years old female-09/17 HTN-DS 09/17 Mitral and tricuspid regurgitation-09/17 ICA stenosis-DS 09/17 HTN urgency-DS 09/17 CKD stage 2-DS 09/17 Smoker-DS 09/17 Sickle cell trait-DS 09/17 Vitamin B12 def-09/17 CAD-DS 09/17 TREATMENTS Carotid endarterectomy-OP Note 09/16 Cardiology consult-09/17 Aspirin 81mg Oral-MAR 09/14 (This form is maintained as a part of the permanent medical record) 2014 [employer] All Rights Reserved [email or web address] [phone] [email or web address]
--- NOTE | 2019-09-21 07:11 | PQF ---
TAMMY ACEVEDO MALIK MD [id number] [facility] [place]-206 [id number] CLINICAL DOCUMENTATION CLARIFICATION FORM: POST DISCHARGE Addendum to original discharge summary date: ____ Late entry note date: __ DATE:09/21/2019 ATTN:Abram Verdugo Please exercise your independent, professional judgment in responding to the clarification form. Clinical indicators are provided on the bottom of this form for your review Please check appropriate box(s): [ ] Encephalopathy: Etiology: [ ] Hypertensive [ ] Metabolic [ ] Toxic [ ] Drug induced: [ ] Unspecified [ ] Other (please specify) [ x ] Transient Alteration of Awareness [ ] Other diagnosis [ ] Unable to determine In addition, please specify: Present on Admission (POA): [ x ] Yes [ ] No [ ] Unable to determine For continuity of documentation, please document condition throughout progress notes and discharge summary. Thank You. CLINICAL INDICATORS - SIGNS / SYMPTOMS / LABS ED Notes 09/14 "presents due to altered mental status" ED Notes 09/14 "Patient presents for evaluation of unresponsiveness" PN 09/15 "near syncope? cardiogenic" PN 09/16 "most likely TIA" Vital Signs BP: 09/1588=871/106 RISK FACTORS 63 years old female-DS 09/17 HTN-DS 09/17 Mitral and tricuspid regurgitation-DS 09/17 ICA stenosis-DS 09/17 HTN urgency-DS 09/17 CKD stage 2-DS 09/17 Smoker-DS 09/17 Sickle cell trait-DS 09/17 Vitamin B12 def-DS 09/17 CAD-DS 09/17 TREATMENTS: Carotid endarterectomy-OP Note 09/16 Cardiology consult-DS 09/17 Aspirin 81mg Oral-JUN 03 Brain MRI-Collected 09/15 Coreg 3.125mg Oral-JUN 03 (This form is maintained as a part of the permanent medical record) 2014 [employer] All Rights Reserved [email or web address] [phone] [email or web address]
== END 2019-09-18 13:14 | disposition home or self-care (01) | DRG 39 ==
LOC: ERS 15:02 → OBSVTOIN 16:58 → ERHOLD 16:58 → 2SE 21:23
PROVIDERS: ADMIT Internal Medicine; ATTEND Internal Medicine
PROC: 03CL0ZZ Extirpation of Matter from Left Internal Carotid Artery, Open Approach (ICD-10-PCS; principal; 2019-09-17)
PROC: 03UL0KZ Supplement Left Internal Carotid Artery with Nonautologous Tissue Substitute, Open Approach (ICD-10-PCS; 2019-09-17)
DX: I65.22 Occlusion and stenosis of left carotid artery (principal); I16.0 Hypertensive urgency; I49.5 Sick sinus syndrome; D57.3 Sickle-cell trait; K21.9 Gastro-esophageal reflux disease without esophagitis; F41.9 Anxiety disorder, unspecified; F32.9 Major depressive disorder, single episode, unspecified; F17.210 Nicotine dependence, cigarettes, uncomplicated; I12.9 Hypertensive chronic kidney disease with stage 1 through stage 4 chronic kidney disease, or unspecified chronic kidney disease; I25.10 Atherosclerotic heart disease of native coronary artery without angina pectoris; E78.5 Hyperlipidemia, unspecified; N18.2 Chronic kidney disease, stage 2 (mild); M19.90 Unspecified osteoarthritis, unspecified site; H54.40 Blindness, one eye, unspecified eye; I35.0 Nonrheumatic aortic (valve) stenosis; E53.8 Deficiency of other specified B group vitamins; I07.9 Rheumatic tricuspid valve disease, unspecified; I25.2 Old myocardial infarction; Z95.5 Presence of coronary angioplasty implant and graft; Z79.82 Long term (current) use of aspirin; Z79.899 Other long term (current) drug therapy; Z98.51 Tubal ligation status; T44.7X5A Adverse effect of beta-adrenoreceptor antagonists, initial encounter
CPT/HCPCS: 36415; 70498; 70553; 71045; 80048; 80053; 80061; 81003; 82607; 82746; 83690; 83735; 84484; 85025; 93005; 93306; 93880; 94760; 96374; A9579; G0378; J0171; J0690; J1100; J1642; J1644; J1885; J2001; J2250; J2405; J2704; J2720; J3010; Q9967; S0020

== ENCOUNTER 2020-03-06 11:19 | Outpatient (CLI) | payer BC ==
[2020-03-06 17:23] LABS: Hemoglobin 14.4 g/dL (12.0-16.0); Mean Corpuscular HGB CONC 33.5 G/DL (32.0-36.0); Mean Corpuscular Hemoglobin 30.4 PG (27.0-33.0); Mean Corpuscular Volume 90.7 fl (80.0-100.0); Mean Platelet Volume 9.8 fl (7.4-10.4); Platelet Count 330 10x3/uL (130-400); Red Blood Cell (RBC) Count 4.74 10x6/uL (3.90-5.20)
[2020-03-06 17:36] LABS: Anion Gap 17 mmol/L (10-20); BUN (Urea Nitrogen) 9 mg/dL (9.8-20.1); Calc. Creatinine Clearance 0 mL/min (70-130); Calcium 9.4 mg/dL (7.8-10.44); Carbon Dioxide 23 mmol/L (23-31); Chloride 105 mmol/L (98-107); Glucose 103 mg/dL (80-115); Sodium 140 mmol/L (136-145)
[2020-03-06 17:46] LABS: Potassium 5.1 mmol/L (3.5-5.1)
[2020-03-06 18:49] LABS: Lymphocytes 29 % (21-51); MDiff Complete? YES; Monocytes 7 % (0-10); Neutrophil 64 % (42-75)
[2020-03-06 18:50] LABS: Platelet Morphology Comment Appears Adequate; RBC Morphology Normal
[2020-03-07 02:16] LABS: SARS-CoV-2 MS2 Positive; SARS-CoV-2 N Gene Negative; SARS-CoV-2 S Gene Negative; SARS-CoV-2 by NAA Not Detected (NotDetected); SARS-CoV-2 orf1ab Negative
== END 2020-03-06 11:20 | disposition home or self-care (01) ==
LOC: LABBT 11:19
PROVIDERS: ATTEND Thoracic Surgery (Cardiothoracic Vascular Surgery)
DX: Z01.812 Encounter for preprocedural laboratory examination (principal); Z20.828 Contact with and (suspected) exposure to other viral communicable diseases
CPT/HCPCS: 80048; 85025; 87635; U0003

== ENCOUNTER 2020-03-09 05:33 | Day surgery (SDC) | payer BC ==
[2020-03-08 11:33] VITALS: BMI 24.0
[2020-03-09] MEDS ORDERED: Midazolam HCl 2 mg/2 ml Vial ONE (06:52)
[2020-03-09] MEDS ORDERED: Fentanyl 100 MCG/2 ML VIAL ONE (06:53)
[2020-03-09] MEDS ORDERED: Heparin 10,000 UNITS/ 10 ML VIAL ONE (07:29)
[2020-03-09] MEDS ORDERED: Protamine Sulfate 50 MG/5 ML VIAL ONE (07:57)
[2020-03-09] MEDS ORDERED: Clopidogrel Bisulfate 300 MG TAB ONE (08:08)
--- NOTE | 2020-03-09 11:40 | OP ---
DATE OF PROCEDURE: 03/09/2020 DESCRIPTION OF PROCEDURE: After prepping and draping the right groin, ultrasound-guided puncture of the right common femoral artery was performed and this was a rather small vessel. Initially, wire would not advance and for this reason, after holding pressure for a few minutes, a micropuncture kit was used and a wire advanced under ultrasound-guided puncture. Following this, contrast angiography was obtained and then a 0.035 Bentson wire was advanced and the 5-Greek dilator and sheath. Initial attempts to pass through the common iliac artery occlusion were successful with an angled Lio and stiff Glidewire. However, the Lio advanced into the aorta and although aspirated blood, did not clearly illuminate the aorta. Due to concern about subintimal location, the catheter was withdrawn and a new pass was made with a Glidewire and following this, the catheter advanced and did aspirate and did light up the aorta with contrast. Following this, a 4 x 40 balloon was used to inflate the common iliac artery on the right and then a 7 x 40 stent was deployed. The 4 mm balloon was used to post this, particularly the distal portion which was in the external iliac artery. Internal iliac continued to fill, although less vigorously. Following this, a Contra catheter was advanced into the aorta and aortogram obtained to document good flow. Following completion of this, the patient's heparin reversed and protamine was given. Job ID: [id number]
[2020-03-09] MEDS ORDERED: Iopamidol 370 76% 50 ML VIAL FS ONE (12:54)
== END 2020-03-09 13:21 | disposition home or self-care (01) ==
LOC: CCL 05:33
PROVIDERS: ATTEND Thoracic Surgery (Cardiothoracic Vascular Surgery)
PROC: 047C3DZ Dilation of Right Common Iliac Artery with Intraluminal Device, Percutaneous Approach (ICD-10-PCS; principal; 2020-03-09)
DX: I74.5 Embolism and thrombosis of iliac artery (principal); I73.9 Peripheral vascular disease, unspecified; I12.9 Hypertensive chronic kidney disease with stage 1 through stage 4 chronic kidney disease, or unspecified chronic kidney disease; N18.2 Chronic kidney disease, stage 2 (mild); K21.9 Gastro-esophageal reflux disease without esophagitis; E78.5 Hyperlipidemia, unspecified; D57.3 Sickle-cell trait; Z87.891 Personal history of nicotine dependence; Z79.82 Long term (current) use of aspirin; Z79.899 Other long term (current) drug therapy
CPT/HCPCS: 37221; 76942; 85347; 99152; 99153; J1644; J2250; J2720; J3010; Q9967

== ENCOUNTER 2020-12-06 06:42 | Emergency (ER) | payer BC | END 2020-12-06 06:53 | disposition left against medical advice (07) | LOC: ERS 06:42 | DX: Z53.21 Procedure and treatment not carried out due to patient leaving prior to being seen by health care provider (principal) ==

== ENCOUNTER 2024-12-01 05:49 | Emergency (ER) | payer MEDICARE, OTHER | END 2024-12-01 06:34 | disposition home or self-care (01) | LOC: ERS 05:49 | DX: M79.641 Pain in right hand (principal); I10 Essential (primary) hypertension; I25.2 Old myocardial infarction; J44.9 Chronic obstructive pulmonary disease, unspecified; F17.210 Nicotine dependence, cigarettes, uncomplicated; Z86.73 Personal history of transient ischemic attack (TIA), and cerebral infarction without residual deficits; Z79.82 Long term (current) use of aspirin; Z79.899 Other long term (current) drug therapy | CPT/HCPCS: 99283 ==